=== PATIENT | male | born 1955 | race Caucasian/White ===

== ENCOUNTER 2024-01-06 10:32 | Emergency (ER) | payer OTHER, SELFPAY ==
[2024-01-06] VITALS (11 sets, daily range): BP systolic 167–209; BP diastolic 88–107; PULSE 80–103; RESP 12–28; O2SAT 95–100
--- NOTE | ~2024-01-06 | XR_ITS ---
XR chest 2V DATE: 01/06/2024 11:33 INDICATION: Left chest pain for one month TECHNIQUE: PA and lateral chest COMPARISON: None FINDINGS: Normal heart size. Aortic arch calcification. Bilateral apical capping, right greater than left. Apical or left upper lobe pulmonary mass densities are not excluded. There is extensive interstitial infiltrate or fibrotic change involving particularly the left mid and both lower lung zones, left greater than right. Differential diagnosis includes active pneumonia and /or chronic interstitial fibrotic change. No prior radiographs are available for comparison. Consider CT thorax examination for further evaluation. Comparison with any available prior chest imaging woul d be very helpful. Slight blunting of left costophrenic angle may be chronic or due to small left pleural effusion. No r ight pleural effusion is evident. No pneumothorax. IMPRESSION: Cannot exclude bilateral apical or left upper lobe masses Extensive interstitial infiltrates and/or fibrotic change involving particularly the mid and lower danita ng zones, left greater than right. Comparison prior available chest radiographs would be very helpful. Consider CT thorax as well Reviewed, dictated and finalized at location L. OR ASSOCIATE IMPRESSION: Cannot exclude bilateral apical or left upper lobe masses Extensive interstitial infiltrates and/or fibrotic change involving particularl y the mid and lower lung zones, left greater than right. Comparison prior available chest radiographs would be very helpful. Consider CT thorax as well
--- NOTE | ~2024-01-06 | CT_ITS ---
EXAMINATION: CTA chest PE protocol DATE: 01/06/2024 14:39 INDICATION: Chest pain TECHNIQUE: Computed tomography angiography (CTA) of the chest was performed with 100 mL Omnipaque-350 intravenous contrast timed to evaluate the pulmonary arteries. Coronal maximum intensity projection 3D-reconstructions were created by the technologist. Automated exposure control and iterative reconst ruction technique were employed. Exam dose: 291.54 mGy-cm total exam DLP. COMPARISON: January 06, 2024 2 view chest FINDINGS: There is diagnostic contrast enhancement of the pulmonary arteries and no evidence of pulmo nary embolism. There is thoracic aortic and great vessel and coronary artery calcification. No thoracic aortic aneur ysm or dissection is detected. Mild left minimal right hilar and mild subcarinal lymph node prominence. Normal heart size. No pericardial effusion. There is moderate dependent left pleural effusion. There are numerous scattered bilateral calcified pleural plaques consistent with prior asbestos expos ure. There is irregular pleural thickening involving particularly the left apical area, left upper chest, raising concern for malignant mesothelioma. Consider PET/CT imaging for further evaluation which may help to identify best areas for possible CT-guided percutaneous needle biopsy. Prominent bullous emphysema is noted. There is bilateral apical scarring. PET/CT imaging would be hel pful to exclude any apical pulmonary malignancy. There is extensive honeycombing and interstitial septal soft tissue thickening involving preferential ly the lung peripheries, most severe at the lingula and at the right lung base involving the middle a nd lower lobes. These findings suggest usual interstitial pneumonia type pulmonary interstitial fibro sis. Right adrenal gland and included portion of left adrenal gland are unremarkable. Small sliding hiatal hernia. No suspicious osteolytic or osteoblastic lesions are noted. 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 Reviewed, dictated and finalized at location L. 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
--- NOTE | 2024-01-06 11:00 | ECG_ITS ---
Measurements Intervals [place] Rate: 93 P: 64 AR: 161 QRS: -6 QRSD: 114 T: 74 QT: 332 QTc: 413 Interpretive Statements SINUS RHYTHM MODERATE INTRAVENTRICULAR CONDUCTION DELAY [110+ ms QRS DURATION] NONSPECIFIC T-WAVE ABNORMALITY NO PREVIOUS ECG AVAILABLE FOR COMPARISON Electronically Signed On 01-06-2024 15:18:46 PACKAGING DESIGNER by Clayton Vasquez M.D.
[2024-01-06 11:17] LABS: Basophils Absolute Auto 0.1 K/mm3 (0.0-0.1); Basophils Percent Auto 0.8 % (0.2-1.2); Eosinophils Absolute Auto 0.8 K/mm3 (0-0.3); Eosinophils Percent Auto 10.5 % (0-4.4); Hematocrit 41.6 % (42.0-52.0); Hemoglobin 13.4 g/dL (14.0-18.0); Immature Granulocyte Absolute 0.04 K/mm3 (0.00-0.031); Immature Granulocyte Percent A 0.5 % (0-0.5); Lymphocytes Percent Auto 16.4 % (18.3-44.2); Mean Corpuscular HGB Conc 32.2 g/dl (32-36); Mean Corpuscular Hemoglobin 29.8 pg (26-34); Mean Corpuscular Volume 92.7 fl (80-100); Monocytes Absolute Auto 0.6 K/mm3 (0.1-0.6); Monocytes Percent Auto 8.6 % (2.6-8.5); Neutrophils Absolute Auto 4.6 K/mm3 (1.3-6.7); Neutrophils Percent Auto 63.2 % (45.5-73.1); Platelet Count Result 240 k/mm3 (150-375); Red Blood Count 4.49 M/mm3 (4.6-6.20); Red Cell Distribution Width 12.8 % (11.5-14.5); White Blood Count 7.3 K/mm3 (4.5-10.0)
[2024-01-06 11:29] LABS: Prothrombin Time 13.3 Seconds (11.1-14.7)
[2024-01-06 11:30] LABS: Partial Thromboplastin Time 33.7 SECONDS (22.3-36.8)
[2024-01-06] MEDS: ASPIRIN 81 MG CHEWABLE TABLET 324 MG PO (11:32)
[2024-01-06 11:34] LABS: Alanine Aminotransferase 15 U/L (6-50); Alkaline Phosphatase 159 U/L (38-126); Anion Gap 8 mmol/L (8-16); Aspartate Amino Transferase 23 U/L (17-59); Bilirubin,Total 0.7 mg/dL (0.2-1.3); Blood Urea Nitrogen 21 mg/dL (9-20); Calcium 9.6 mg/dL (8.4-10.2); Carbon Dioxide 26 mmol/L (22-30); Chloride 102 mmol/L (98-107); Estimated CRCL calculation 96 ml/min; Estimated Glomerular Filt Rate > 60; Glucose 102 mg/dL (65-110); Lipase 40 U/L (23-300); Potassium 4.1 mmol/L (3.4-5.0); Sodium 136 mmol/L (137-145)
[2024-01-06 11:45] LABS: Troponin I < 0.012 ng/mL (0.000-0.034)
--- NOTE | 2024-01-06 13:22 | ED.CHESTPAIN ---
HPI - Chest Pain General Chief Complaint: Chest Pain Stated Complaint: chest pain Time Seen by Provider: 01/06/24 12:45 History of Present Illness HPI narrative: Patient is a 68-year-old male who presents the emergency department afternoon complaining of chest pain/back pain. Patient states the pain radiates from his left shoulder blade across to the front of his left chest and under his left arm. Patient has been taking Tylenol/Motrin and using heating pads for the pain with minimal to no relief. Patient states that he noticed that the pain is worse when he lays down but is better when he sitting upright. Denies any similar symptoms in the past. Patient denies any additional symptoms including shortness of breath, nausea, vomiting, abdominal pain, dysuria, hematuria, constipation, diarrhea, melena, hematochezia, fevers or chills. Patient also denies any headaches, dizziness, lightheadedness, blurry visions, focal weakness, numbness and or tingling. There are no other modifying, alleviating, or precipitating factors at this time. Related Data Allergies Allergy/AdvReac Type Severity Reaction Status Date / Time No Known Allergies Allergy Verified 01/06/24 11:06 Review of Systems Review of Systems: All systems are reviewed and are negative unless stated otherwise in the HPI. Exam Narrative: General: Alert, awake, afebrile, in no acute distress. HEENT: PERRL, no rhinorrhea, no post nasal drip, oropharynx clear. Neck: Trachea midline, no JVD, no lymphadenopathy. Cardiovascular: Regular rate and rhythm, no murmurs, rubs or gallops, no peripheral edema. Respiratory: Clear to auscultation bilaterally, no tachypnea, no wheezing, no rhonchi, no rubs, no respiratory distress. Abdomen: Soft, nontender, nondistended, no rebound, no guarding, no peritoneal signs. Musculoskeletal: No joint swelling or deformity, normal muscle tone. Skin: No rashes or petechia, no signs of infection. Psychiatric: Alert and oriented, normal behavior and judgment for situation. Neurological: Alert and oriented to person, place, and time. Follows all commands. No focal deficits, speech is clear and fluent. Course Vital Signs Vital signs: Vital Signs Pulse Rate 94 01/06/24 11:03 Respiratory Rate 12 01/06/24 11:03 Blood Pressure 209/107 H 01/06/24 11:03 Pulse Oximetry 99 01/06/24 11:03 Pulse Rate 95 01/06/24 14:28 Respiratory Rate 18 01/06/24 14:28 Blood Pressure 170/99 H 01/06/24 14:28 Pulse Oximetry 95 01/06/24 14:28 MDM - Chest Pain MDM Narrative Medical decision making narrative: The patient was evaluated by myself in the emergency department. History is obtained from patient who is an independent historian and physical exam was performed. External medical records were reviewed at this time. IV was established and pertinent tests were ordered. EKG was obtained which revealed sinus rhythm rate of 93 beats per minute. No ST changes, T wave inversions or evidence of acute ischemia. EKG was independently interpreted by me and is currently pending official cardiology read. Laboratory results obtained including troponin revealing no acute process. Imaging studies obtained included CXR which was independently interpreted by me revealing bilateral apical or left upper lobe masses Extensive interstitial infiltrates and/or fibrotic change involving particularly the mid and lower lung zones, left greater than right, which is pending final radiology interpretation. At this time a CT chest with IV contrast PE protocol was obtained for further evaluation. CT revealed pleural thickening consistent with mesothelioma with an irregular pleural thickening noted in the left apical area and left upper thorax, raising concern for malignant mesotheliom. CT was also concerning for interstitial pneumonia patient was informed of this at bedside as of his and instructed that he will need to follow up with pulmonology for a biopsy and
[2024-01-06 14:34] LABS: Troponin I < 0.012 ng/mL (0.000-0.034)
== END 2024-01-06 16:48 | disposition home or self-care (01) ==
PROVIDERS: Emergency Provider Emergency Medicine; PCP Emergency Medicine
DX: R91.8 Other nonspecific abnormal finding of lung field (principal); R07.81 Pleurodynia; J90 Pleural effusion, not elsewhere classified
CPT/HCPCS: 36415; 71046; 71275; 80053; 83690; 84484; 85025; 85610; 85730; 93005; 99284; A9270; Q9967

== ENCOUNTER 2024-01-12 08:10 | Outpatient (CLI) | payer OTHER, SELFPAY ==
--- NOTE | ~2024-01-12 | XR_ITS ---
EXAMINATION: XR lumbar spine 2-3V DATE: 01/12/2024 09:15 INDICATION: Chronic low back pain TECHNIQUE: Anteroposterior and lateral views of the lumbar spine, and cone-down lateral view of the l umbosacral junction were obtained. COMPARISON: None. FINDINGS: There are 2 mm of retrolisthesis of L5 on S1. Bone alignment is otherwise normal. There is no fracture. The vertebral body heights are maintained. There is mild loss of intervertebral disc spa ce height at L5-S1. Small degenerative osteophytes project from the anterior endplates of multiple ve rtebral bodies. Calcified atherosclerosis is noted. IMPRESSION: 1. Mild lumbar spondylosis without acute findings. Reviewed, dictated and finalized at location B. GROUND ATTENDANT
--- NOTE | ~2024-01-12 | XR_ITS ---
EXAMINATION: XR thoracic spine 3V DATE: 01/12/2024 09:15 INDICATION: Thoracic back pain TECHNIQUE: AP, lateral and lateral swimmer's views of the thoracic spine were obtained. COMPARISON: CT, 01/06/2024 FINDINGS: Bone alignment is normal. There is no fracture. There is mild loss of intervertebral disc s pace height at multiple levels throughout the thoracic spine. Small degenerative osteophytes project from the anterior endplates of multiple vertebral bodies. IMPRESSION: 1. Mild thoracic spondylosis without acute findings. Reviewed, dictated and finalized at location B. OR WINDER
[2024-01-12 09:01] LABS: Cholesterol 162 mg/dL (0-200); HDL Direct 34 mg/dL; Triglycerides 141 mg/dL (<150)
[2024-01-12 09:12] LABS: LDL Cholesterol Direct 95 mg/dL
[2024-01-12 09:27] LABS: Appearance Urine Cloudy (Clear); Bacteria Urine None Seen /hpf; Bilirubin Urine 2+ (Negative); Blood Urine 3+ (Negative); Color Urine Dark Yellow (Yellow); Glucose Urine UA Trace mg/dL (Negative); Hyaline Casts Urine Present /lpf; Ketones Urine 1+ mg/dL (Negative); Leukocyte Esterase Ur Trace LEU/UL (NEGATIVE); Need Manual Microscopic Reviewed; Nitrate Urine Negative (Negative); Protein Urine 2+ mg/dL (Negative); RBC Urine >100 /hpf (0-2); Squamous Epithelial Cell Urine Few /hpf (Few); WBC Urine 0-5 /hpf (0-3)
[2024-01-12 09:28] LABS: Add Urine Microscopic? YES; Specific Grav Ur 1.047 (1.001-1.035)
[2024-01-12 09:30] LABS: Prostate Specific Antigen 1.3 ng/mL (< OR = 4.0)
[2024-01-12 09:39] LABS: Creatinine Urine 268.3 mg/dL
[2024-01-12 09:55] LABS: MALB Creatinine Ratio 208.1 mg/g (0-30); Microalbumin Urine Random 558.3 mg/L (0-16.7)
[2024-01-12 09:57] LABS: Free T4 Free Thyroxine 1.59 ng/mL (0.78-2.19)
[2024-01-12 10:07] LABS: Hepatitis B Surface Antigen Negative (Negative)
[2024-01-12 10:13] LABS: HAV RESULT Negative (Negative); Hepatitis B Core IgM Result Negative (Negative)
[2024-01-12 10:24] LABS: Hepatitis C Virus Antibody Negative (Negative)
[2024-01-15 14:34] LABS: GGT 104 U/L (3-70)
== END 2024-01-12 08:11 | disposition home or self-care (01) ==
PROVIDERS: PCP Emergency Medicine; Visit Provider Emergency Medicine
DX: M43.05 Spondylolysis, thoracolumbar region (principal); M43.06 Spondylolysis, lumbar region; K21.00 Gastro-esophageal reflux disease with esophagitis, without bleeding; I10 Essential (primary) hypertension; J18.9 Pneumonia, unspecified organism; C45.9 Mesothelioma, unspecified
CPT/HCPCS: 36415; 72072; 72100; 80061; 80074; 81001; 82043; 82977; 83036; 84153; 84439; 84443